=== PATIENT | male | born 1965 | race Caucasian/White ===

== ENCOUNTER → 2016-09-09 | Outpatient (CLI) | payer SELFPAY ==
--- NOTE | 2016-09-09 13:02 | DI ---
XR KNEE CMPT 4 OR MORE VWS, XR KNEE CMPT 4 OR MORE VWS,09/09/2016 11:33 AM: Clinical History: Bilateral knee pain Previous Exam: None at this facility. Findings: AP, lateral, sunrise and oblique views of both knees are obtained, and demonstrate anatomic alignment without fractures. The surrounding soft tissues are unremarkable. Impression: Normal bilateral knees.
--- NOTE | 2016-09-09 13:21 | DI ---
XR HIP B/L MIN 2VW, EACH HIP,09/09/2016 12:11 PM: Clinical History: Bilateral hip pain. Previous Exam: None at this facility. Findings: AP and frog-leg views of both hips are obtained, and demonstrate anatomic alignment without fractures . There is new bone formation along the head neck junction of the lateral proximal femur consistent w ith some underlying impingement. Impression: 1. Anatomic without fractures. 2. 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 Correlate with physical exam.
== END ==
LOC: ORTHO 11:49
PROVIDERS: ATTEND Orthopaedic Surgery
DX: M25.561 Pain in right knee (principal); M25.562 Pain in left knee; M25.552 Pain in left hip; M25.551 Pain in right hip
CPT/HCPCS: 73521; 73564